=== PATIENT | male | born 1990 | race African-American/Black ===

== ENCOUNTER 2022-04-22 12:38 | Emergency (ER) | payer BC, OTHER ==
[~2022-04-22] VITALS: Ht 193 cm; Wt 93.0 kg
[2022-04-22 12:55] VITALS: BP 122/53
[2022-04-22] MEDS ORDERED: KETOROLAC 60MG/2ML VIAL IM ONE (15:00)
[2022-04-22] MEDS ORDERED: NAPR-681 MT (16:40)
== END 2022-04-22 17:12 | disposition home or self-care (01) ==
LOC: ER 13:20
DX: M79.672 Pain in left foot (principal); Z98.890 Other specified postprocedural states
CPT/HCPCS: 29515; 73630; 99283; Z7610